=== PATIENT | male | born 1995 | race African-American/Black ===

== ENCOUNTER 2019-03-31 10:51 | Emergency (ER) | payer BC, MEDICAID ==
[~2019-03-31] VITALS: Ht 180.3 cm; Wt 88.5 kg
[2019-03-31 17:29] VITALS: BP 141/82
== END 2019-03-31 17:35 | disposition home or self-care (01) ==
LOC: ED 13:53
DX: R45.851 Suicidal ideations (principal); Z72.9 Problem related to lifestyle, unspecified; F12.10 Cannabis abuse, uncomplicated; F15.10 Other stimulant abuse, uncomplicated
CPT/HCPCS: 36415; 80048; 80307; 82040; 85025; 99284